=== PATIENT | male | born 1990 | race Caucasian/White ===

== ENCOUNTER 2021-04-13 10:36 | Emergency (ER) | payer MEDICAID, OTHER ==
[~2021-04-13] VITALS: Ht 182.9 cm; Wt 77.1 kg
--- NOTE | 2021-04-13 11:01 | NUR ---
PATIENT WAS SEEN BY MD. STONE AND FOLLOW UP INSTRUCTIONS GIVEN AND EXPLAINED TO PATIENT WHO STATES HE UNDERSTANDS ALL INSTRUCTIONS.
== END 2021-04-13 11:13 | disposition home or self-care (01) ==
LOC: ER 10:36
DX: S41.102D Unspecified open wound of left upper arm, subsequent encounter (principal); X95.9XXD Assault by unspecified firearm discharge, subsequent encounter; Z86.69 Personal history of other diseases of the nervous system and sense organs
CPT/HCPCS: A4663